=== PATIENT | male | born 1935 | race Caucasian/White ===

== ENCOUNTER 2021-08-02 06:31 | Day surgery (SDC) | payer MEDICARE, BC ==
[2021-07-27 10:58] LABS: BASOPHILS # (AUTO) 0.1 X10'3 (0-0.2); EOSINOPHILS # (AUTO) 0.1 X10'3 (0-0.9); EOSINOPHILS % (AUTO) 1.7 % (0-6); LYMPHOCYTES # (AUTO) 0.8 X10'3 (1.1-4.8); LYMPHOCYTES % (AUTO) 15.5 % (21-51); MEAN CORPUSCULAR HEMOGLOBIN 31.2 PG (27.0-31.0); MEAN CORPUSCULAR HGB CONC 34.5 g/dL (33.0-36.5); MEAN CORPUSCULAR VOLUME 90.5 FL (78-98); MEAN PLATELET VOLUME 9.4 FL (7.4-10.4); MONOCYTES # (AUTO) 0.4 X10'3 (0-0.9); MONOCYTES % (AUTO) 7.6 % (2-12); NEUTROPHILS % (AUTO) 74.2 % (42-75); PRE OP HEMATOCRIT 42.8 % (42.0-52.0); PRE OP HEMOGLOBIN 14.7 g/dL (14.0-17.9); PRE OP PLATELET COUNT 166 X10'3 (140-440); RED BLOOD COUNT 4.73 X10'6 (4.70-6.10); RED CELL DISTRIBUTION WIDTH 13.9 % (11.5-14.5)
[2021-07-27 11:23] LABS: ALBUMIN 3.4 G/DL (3.4-5.0); ALKALINE PHOSPHATASE 66 IU/L (46-116); BLOOD UREA NITROGEN 10 MG/DL (7-18); BUN/CREATININE RATIO 14.3 (5.4-32.0); CALCIUM 9.1 MG/DL (8.5-10.1); CHLORIDE 103 MMOL/L (99-107); PRE OP ALT 21 U/L (30-65); PRE OP ANION GAP 6 (8-16); PRE OP AST 17 U/L (10-37); PRE OP BILIRUB, TOTAL 0.7 MG/DL (0.0-1.0); PRE OP GLUCOSE 95 MG/DL (70-104); PRE OP POTASSIUM 4.1 MMOL/L (3.4-5.1); PRE OP SODIUM 138 MMOL/L (135-145); TOTAL CARBON DIOXIDE 28.7 MMOL/L (24-32); TOTAL PROTEIN 6.9 G/DL (6.4-8.2); eGFR > 90 ML/MIN
[2021-08-02] VITALS (16 sets, daily range): BP systolic 118–147; BP diastolic 64–86
[~2021-08-02] VITALS: Ht 170.2 cm; Wt 73.3 kg
[~2021-08-02 06:31] MED LIST: FINA5TAB11 PO; HYDROcodone/acetaminophen 10/325mg tab PO PRN; HYDROmorphone 1 mg/ml syringe IV PRN; HYDROmorphone inj. 0.5 MG/0.5 ML DISP.SYRIN IV PRN; LEVO150T PO; acetaminophen 325mg tablet PO ONE; acetaminophen 325mg tablet PO PRN; bisacodyl 10mg suppository rectal RC PRN; ceFAZolin 2gm in dextrose, iso 50 ML IV ONE; celeCOXIB 100mg capsule PO ONE; diphenhydrAMINE 25mg capsule PO PRN; famotidine 20mg tablet PO ONE; gabapentin 300mg capsule PO ONE; magnesium hydroxide 30ml (MOM) UD suspension PO PRN; metoclopramide 5 mg/ml inj IV ONE; ondansetron/PF 4mg/2ml inj IV PRN; oxyCODONE SR 10mg (sust. release) tab -2 tabs (20mg) PO ONE; potassium cl 20mEq in 1/2 NS 1,000 ML IV SCH; ringers solution, lacted 1,000 ML IV SCH; tranexamic acid 1gm/0.7% sal. 100 ML IV ONE; tranexamic acid inj. 700 MG in normal saline 100ml IV soln 100 ML IV ONE; vancomycin 1,500 MG in NS 300ml IV soln IV ONE
[2021-08-02] MEDS ORDERED: vancomycin/NS 1 GM ADD-VANTAGE 250 ML IV SCH (08:00)
[2021-08-02] MEDS ORDERED: ceFAZolin/D5W- 1GM premix 50 ML IV SCH (08:00)
[2021-08-02] MEDS ORDERED: vancomycin 1,000mg inj ONE (09:11)
[2021-08-02] MEDS ORDERED: ROPIVAcaine 0.5% (5mg/ml) 30ml vial ONE ×2 (09:11→10:55)
[2021-08-02] MEDS ORDERED: cloNIDine hcl/PF 100mcg/ml inj ONE (09:11)
[2021-08-02] MEDS ORDERED: epiNEPHrine 1 mg/ml inj ONE (09:12)
[2021-08-02] MEDS ORDERED: ketorolac trometh. 30mg/ml inj. ONE (09:12)
[2021-08-02] MEDS ORDERED: midazolam 1 mg/ML 2ml injection ONE (09:29)
[2021-08-02] MEDS ORDERED: fentaNYL/PF 50MCG/1 ML 2ML syringe ONE (09:29)
[2021-08-02] MEDS ORDERED: propofol inj 20 ML IV ONE ×2 (10:02)
[2021-08-02] MEDS ORDERED: proCHLORperazine 10 MG/2 ml inj IV PRN (10:10)
[2021-08-02] MEDS ORDERED: hydrALAZINE 20mg/ml inj. IV PRN (10:10)
[2021-08-02] MEDS ORDERED: ROPIVAcaine 0.2% (10 MG/5 ML) BOLUS INJECTION ADDCANAL PRN (10:10)
[2021-08-02] MEDS ORDERED: ROPIVAcaine 0.2%/PF PUMP/bolus 545 ML ADDCANAL SCH (10:10)
[2021-08-02] MEDS ORDERED: labetalol 20mg/4ml (5mg/ml) syringe IV PRN (10:10)
[2021-08-02] MEDS ORDERED: ondansetron/PF 4mg/2ml inj IV PRN (10:10)
[2021-08-02] MEDS ORDERED: ringers solution, lacted 1,000 ML IV SCH (10:10)
[2021-08-02] MEDS ORDERED: morphine 4 MG/ML inj SYRINge IV PRN (10:10)
[2021-08-02] MEDS ORDERED: meperidine/PF 25mg/ml syringe IV PRN ×2 (10:10)
[2021-08-02] MEDS ORDERED: morphine 2 MG/ML inj. syringe IV PRN (10:10)
[2021-08-02] MEDS ORDERED: acetaminophen 1,000mg/100ml IV 100 ML IV PRN (10:10)
[2021-08-02] MEDS ORDERED: ePHEDrine 50MG/ML INJ. ONE (10:21)
--- NOTE | 2021-08-02 11:20 | NUR ---
ADMITTED TO PACU FROM OR ACCOMPANIED BY ANESTHESIA. INTIAL PHYSICAL ASSESSMENT DONE AND RECORDED. REPORT RECEIVED FROM ANESTHESIA.
--- NOTE | 2021-08-02 13:30 | NUR ---
PACU DISCHARGE CRITERIA MET, REPORT GIVEN TO FLOOR. DENIES PAIN OR DISCOMFORT. PT IS STABLE AND ADEQUATELY RECOVERED FROM ANESTHESIA. PT HAS STABLE AIRWAY PATENCY, RESPIRATORY FUNCTION TO INCLUDE RESPIRATORY RATE AND O2 SAT. HEART RATE, BLOOD PRESSURE STABLE AND HYDRATION ADEQUATE. MENTAL STATUS IS APPROPRIATE. PAIN AND NAUSEA CONTROLLED. REFER TO PACU SPREADSHEET FOR VITAL SIGNS. AWAITING INPATIENT BED FULLY RECOVERED.
[2021-08-02] MEDS ORDERED: tranexamic acid inj. 700 MG in normal saline 100ml IV soln 100 ML IV ONE (14:00)
--- NOTE | 2021-08-02 16:44 | NUR ---
PT WISHES TO GO HOME, DR. HODGES CONTACTED UPDATE GIVEN DISCHARGE ORDERS RECEIVED, TO CONTACT DR HODGES OFFICE IN AM FOR FURTHER INSTRUCTIONS.
--- NOTE | 2021-08-02 17:17 | NUR ---
PT DISCHARGED HOME PER REQUEST AND DISCHARGE ORDERS FROM DR. HODGES. DISCHARGE CRITERIA MET, DISCHARGE INSTRUCTIONS GIVEN, DEMONSTRATES VERBAL UNDERSTANDING. DISCHARGED HOME IN GOOD CONDITION.
[2021-08-02] MEDS ORDERED: levoTHYROXINE 75mcg tablet PO SCH (18:00)
[2021-08-02] MEDS ORDERED: aspirin 325mg tablet PO SCH (18:00)
[2021-08-02] MEDS ORDERED: multivitamins, therapeutics tablet PO SCH (18:00)
[2021-08-02] MEDS ORDERED: finasteride 5mg tablet PO SCH (18:00)
[2021-08-02] MEDS ORDERED: ascorbic acid 500mg tablet PO SCH (20:00)
[2021-08-02] MEDS ORDERED: sennosides 8.6mg tablet PO SCH (21:00)
[2021-08-02] MEDS ORDERED: gabapentin 300mg capsule PO SCH (21:00)
[2021-08-03] MEDS ORDERED: celeCOXIB 100mg capsule PO SCH (20:00)
== END 2021-08-02 16:20 | disposition home or self-care (01) ==
LOC: PAS 06:31 → EDSTATUS 10:00 → PAS 16:20
PROVIDERS: ATTEND Orthopaedic Surgery
DX: M17.11 Unilateral primary osteoarthritis, right knee (principal); I10 Essential (primary) hypertension; M19.072 Primary osteoarthritis, left ankle and foot; M16.11 Unilateral primary osteoarthritis, right hip; N40.0 Benign prostatic hyperplasia without lower urinary tract symptoms; G89.18 Other acute postprocedural pain; Z98.890 Other specified postprocedural states; Z72.89 Other problems related to lifestyle; Z87.891 Personal history of nicotine dependence; Z20.822 Contact with and (suspected) exposure to COVID-19; Z79.899 Other long term (current) drug therapy
CPT/HCPCS: 27447; 36415; 64448; 73560; 76937; 80053; 82948; 84443; 85025; 86885; 86900; 86901; 87081; 97110; 97161; 97530; C1713; C1776; J0171; J0735; J1885; J2250; J2704; J2765; J2795; J3010; J3370; J7040; J7120; U0003; U0005; Z7506; Z7508; Z7512; A4215; A7000